=== PATIENT | female | born 1985 | race Caucasian/White ===

== ENCOUNTER 2019-11-23 05:32 | Day surgery (SDC) | payer MEDICAID ==
[2019-11-20 16:10] LABS: BASOPHILS % (AUTO) 0.6 % (0-1); EOSINOPHILS # (AUTO) 0.2 X10'3 (0-0.9); EOSINOPHILS % (AUTO) 2.9 % (0-6); LYMPHOCYTES # (AUTO) 1.9 X10'3 (1.1-4.8); LYMPHOCYTES % (AUTO) 30.1 % (21-51); MEAN CORPUSCULAR HEMOGLOBIN 30.5 PG (27.0-31.0); MEAN CORPUSCULAR HGB CONC 34.8 g/dL (33.0-36.5); MEAN CORPUSCULAR VOLUME 87.5 FL (78-98); MEAN PLATELET VOLUME 8.4 FL (7.4-10.4); MONOCYTES # (AUTO) 0.6 X10'3 (0-0.9); MONOCYTES % (AUTO) 9.1 % (2-12); NEUTROPHILS # (AUTO) 3.5 X10'3 (1.8-7.7); NEUTROPHILS % (AUTO) 57.3 % (42-75); PRE OP HEMOGLOBIN 14.6 g/dL (12.0-16.0); PRE OP PLATELET COUNT 341 X10'3 (140-440); RED CELL DISTRIBUTION WIDTH 12.6 % (11.5-14.5)
[2019-11-20 16:28] LABS: HCG SERUM QL NEGATIVE
[2019-11-20 16:29] LABS: ALBUMIN 3.7 G/DL (3.4-5.0); ALBUMIN/GLOBULIN RATIO 0.9 (1.1-1.5); ALKALINE PHOSPHATASE 69 IU/L (46-116); BLOOD UREA NITROGEN 14 MG/DL (7-18); BUN/CREATININE RATIO 16.7 (6.6-38.0); CALCIUM 8.8 MG/DL (8.5-10.1); CHLORIDE 102 MMOL/L (99-107); CREATININE 0.84 MG/DL (0.40-0.90); PRE OP ALT 24 U/L (30-65); PRE OP ANION GAP 9 (8-16); PRE OP AST 19 U/L (10-37); PRE OP BILIRUB, TOTAL 0.3 MG/DL (0.0-1.0); PRE OP GLUCOSE 134 MG/DL (70-104); PRE OP SODIUM 137 MMOL/L (135-145); TOTAL CARBON DIOXIDE 25.6 MMOL/L (24-32); TOTAL PROTEIN 7.6 G/DL (6.4-8.2); eGFR 78 ML/MIN
[2019-11-20 16:34] LABS: PRE OP POTASSIUM 3.3 MMOL/L (3.4-5.1)
[~2019-11-23] VITALS: Ht 167.6 cm; Wt 87.0 kg
[2019-11-23] VITALS (10 sets, daily range): BP systolic 105–128; BP diastolic 69–87
[~2019-11-23 05:32] MED LIST: ALLERGY MED; BIRTH CONTROL; MULT-1085 PO; famotidine 20mg tablet PO ONE; ringers solution, lacted 1,000 ML IV SCH
[2019-11-23] MEDS ORDERED: BUPIVAcaine 0.5% inj/PF 30 ML ONE (06:43)
[2019-11-23] MEDS ORDERED: morphine 2 MG/ML inj. syringe IV PRN (07:25)
[2019-11-23] MEDS ORDERED: meperidine/PF 25mg/ml syringe IV PRN ×3 (07:25)
[2019-11-23] MEDS ORDERED: ringers solution, lacted 1,000 ML IV SCH (07:25)
[2019-11-23] MEDS ORDERED: morphine 4 MG/ML inj SYRINge IV PRN (07:25)
[2019-11-23] MEDS ORDERED: proCHLORperazine 10 MG/2 ml inj IV PRN (07:25)
[2019-11-23] MEDS ORDERED: ondansetron/PF 4mg/2ml inj IV PRN (07:25)
[2019-11-23] MEDS ORDERED: rocuronium 10mg/ml inj IV ONE (07:30)
[2019-11-23] MEDS ORDERED: sevoflurane 250ml liquid IH ONE (07:30)
[2019-11-23] MEDS ORDERED: midazolam 2 mg/2 ml injection ONE (07:31)
[2019-11-23] MEDS ORDERED: fentaNYL/PF 50MCG/1 ML 2ML syringe ONE (07:31)
[2019-11-23] MEDS ORDERED: LIDOcaine 2% (20mg/ml) 5ml vial ONE (07:32)
[2019-11-23] MEDS ORDERED: ondansetron/PF 4mg/2ml inj ONE (07:32)
[2019-11-23] MEDS ORDERED: dexamethasone sod phosphate 4mg/ml inj. ONE (07:32)
[2019-11-23] MEDS ORDERED: propofol inj 20 ML IV ONE (07:32)
[2019-11-23] MEDS ORDERED: ketorolac trometh. 30mg/ml inj. ONE (07:32)
--- NOTE | 2019-11-23 09:00 | NUR ---
Received from OR via BED , accompanied by Anesthesiologist DR FIGUEROA and report given by Anesthesiolgist. PATIENT WAKING UP, DENIES PAIN, V/S WNL, NEUROVASCULAR CHECKS INTACT, 20G PIV LUE, SCD ON, BANDAIDS TO LAP SIGHTS OF ABDOMEN CDI AND PERIPAD WITH SCANT DRAINAGE.
--- NOTE | 2019-11-23 10:10 | NUR ---
PATIENT A&OX4, STATES PAIN 3/10 PAIN, V/S WNL, NEUROVASCULAR CHECKS INTACT, 20G PIV LUE D/C, SCD OFF, BANDAIDS TO LAP SIGHTS OF ABDOMEN CDI AND FRESH PERIPAD GIVEN. I HAVE REVIEWED D/C INSTRUCTIONS WITH PATIENT AND FAMILY HAVE VERBALIZED UNDERSTANDING.PATIENT WAS D/C HOME WITH ALL BELONGINGS AND FAMILY GAVE TRANSPORT HOME.
== END 2019-11-23 10:10 | disposition home or self-care (01) ==
LOC: PAS 05:32
PROVIDERS: ATTEND Specialist
DX: Z30.2 Encounter for sterilization (principal); N92.0 Excessive and frequent menstruation with regular cycle; N80.2 Endometriosis of fallopian tube; E66.9 Obesity, unspecified; Z68.31 Body mass index [BMI] 31.0-31.9, adult; Z79.899 Other long term (current) drug therapy
CPT/HCPCS: 36415; 49321; 58563; 58670; 80053; 82948; 84703; 85025; 86885; 86900; 86901; A4264; J1100; J1885; J2001; J2175; J2250; J2405; J2704; J3010; J7120; A4355; A4618; A6258; A7000